=== PATIENT | female | born 1945 | race Caucasian/White ===

== ENCOUNTER 2019-06-26 17:00 | Inpatient (IN) | payer OTHER ==
[~2019-06-26] VITALS: Ht 154.9 cm; Wt 90.7 kg
[~2019-06-26 17:00] MED LIST: AMLO5TAB4 PO; FURO-150 PO; HYDR-4272 PO; LIP40 PO; METO25TA6 PO; POTA10TA15 PO; PRED5TAB PO; PREG75CA PO; PRO40 PO; SPIRIVA INH
[2019-06-26 17:12] VITALS: BP_SYST 156
[2019-06-26] MEDS ORDERED: APIX5TAB4 PO (17:19)
[2019-06-26] MEDS ORDERED: IOHEXOL 350 mgI/mL, 150 ML INFUS..BTL IV ONE (17:46)
[2019-06-26 17:47] LABS: BASOPHILS % (AUTO) 0.3 % (0.0-2.0); EOSINOPHILS # (AUTO) 0.1 K/uL (0.0-0.4); EOSINOPHILS % (AUTO) 0.6 % (0.0-4.0); HEMATOCRIT 40.3 % (36-48); HEMOGLOBIN 13.2 g/dL (12.0-16.0); LYMPHOCYTES # (AUTO) 1.7 K/uL (1.0-5.5); LYMPHOCYTES % (AUTO) 16.2 % (20.5-51.5); MEAN CORPUSCULAR HEMOGLOBIN 32 pg (27-31); MEAN CORPUSCULAR HGB CONC 33 % (32-36); MEAN CORPUSCULAR VOLUME 98 fL (79.0-98.0); MONOCYTES # (AUTO) 1.2 K/uL (0.0-1.0); MONOCYTES % (AUTO) 11.4 % (1.7-9.3); NEUTROPHILS # (AUTO) 7.6 K/uL (1.8-7.7); NEUTROPHILS % (AUTO) 71.5 % (40.0-70.0); PLATELET COUNT (AUTO) 268 K/uL (130-430); RED BLOOD CELL COUNT(AUTO) 4.11 MIL/uL (4.2-6.2); RED CELL DISTRIBUTION WIDTH 16.9 % (9.0-15.0); WHITE BLOOD COUNT (AUTO) 10.6 K/uL (4.8-10.8)
[2019-06-26 17:52] LABS: ANION GAP 11 (5-15); CALCIUM 9.8 mg/dL (8.4-11.0); CHLORIDE 101 mmol/L (98-107); CREATININE 0.88 mg/dL (0.55-1.30); GLUCOSE 135 mg/dL (70-99); POTASSIUM 3.4 mmol/L (3.5-5.1); SODIUM SERUM 142 mmol/L (136-145); UREA NITROGEN, BLOOD 16 mg/dL (8-21)
[2019-06-26 17:57] LABS: ALANINE AMINOTRANSFERASE 35 U/L (12-78); ASPARTATE AMINOTRANSFERASE 15 U/L (10-37); TOTAL BILIRUBIN 0.7 mg/dL (0.0-1.0)
[2019-06-26] MEDS ORDERED: IPRATROPIUM/ALBUTEROL SULFATE 3 ML AMPUL.NEB (DUONEB) INH ONE (19:30)
[2019-06-26] MEDS ORDERED: methylPREDNISolone SOD SUCC/PF 62.5 MG/ML VIAL IVP ONE (19:45)
[2019-06-26 20:00] VITALS: BP_SYST 159
[2019-06-26 20:13] VITALS: BP_SYST 159
[2019-06-26] MEDS ORDERED: ACETAMINOPHEN 325 MG TABLET PO PRN (21:15)
[2019-06-26] MEDS ORDERED: ALBUTEROL SULFATE 0.083% 2.5 MG/3 ML VIAL.NEB INH PRN (21:15)
[2019-06-26] MEDS ORDERED: LEVOFLOXACIN 500 MG/D5W 100 ML IV SCH (22:00)
[2019-06-26] MEDS: HYDROcodone/ACETAMIN 10-325 MG TAB PO PRN (22:12)
[2019-06-26] MEDS: APIXABAN 2.5 MG TABLET PO SCH (22:14)
[2019-06-27 00:15] VITALS: BP_SYST 168
[2019-06-27] MEDS: HYDROcodone/ACETAMIN 10-325 MG TAB PO PRN ×3 (04:08→20:24)
[2019-06-27] MEDS ORDERED: hydrALAZINE HCL 25 MG TABLET PO ONE (05:00)
[2019-06-27] MEDS ORDERED: MORPHINE 2 MG/ML INJ. SYRINGE IVP ONE (05:00)
[2019-06-27] MEDS: PANTOPRAZOLE SODIUM 40 MG TAB PO SCH (06:13)
[2019-06-27 07:01] LABS: ALANINE AMINOTRANSFERASE 31 U/L (12-78); ALBUMIN 3.5 g/dL (3.4-4.8); ANION GAP 8 (5-15); ASPARTATE AMINOTRANSFERASE 26 U/L (10-37); CALCIUM 9.5 mg/dL (8.4-11.0); CHLORIDE 102 mmol/L (98-107); CREATININE 0.85 mg/dL (0.55-1.30); GLUCOSE 182 mg/dL (70-99); POTASSIUM 4.8 mmol/L (3.5-5.1); SODIUM SERUM 138 mmol/L (136-145); TOTAL BILIRUBIN 0.7 mg/dL (0.0-1.0); UREA NITROGEN, BLOOD 15 mg/dL (8-21)
[2019-06-27 07:04] LABS: BASOPHILS % (AUTO) 0.4 % (0.0-2.0); HEMATOCRIT 37.2 % (36-48); LYMPHOCYTES # (AUTO) 0.4 K/uL (1.0-5.5); LYMPHOCYTES % (AUTO) 4.4 % (20.5-51.5); MEAN CORPUSCULAR HEMOGLOBIN 32 pg (27-31); MEAN CORPUSCULAR HGB CONC 32 % (32-36); MEAN CORPUSCULAR VOLUME 99 fL (79.0-98.0); MONOCYTES # (AUTO) 0.2 K/uL (0.0-1.0); MONOCYTES % (AUTO) 2.4 % (1.7-9.3); NEUTROPHILS # (AUTO) 7.6 K/uL (1.8-7.7); NEUTROPHILS % (AUTO) 92.8 % (40.0-70.0); PLATELET COUNT (AUTO) 207 K/uL (130-430); RED BLOOD CELL COUNT(AUTO) 3.77 MIL/uL (4.2-6.2); RED CELL DISTRIBUTION WIDTH 16.7 % (9.0-15.0); WHITE BLOOD COUNT (AUTO) 8.2 K/uL (4.8-10.8)
[2019-06-27 08:00] VITALS: BP_SYST 159
[2019-06-27] MEDS ORDERED: FUROSEMIDE 20 MG TABLET PO SCH (09:00)
[2019-06-27] MEDS ORDERED: PREDNISONE 5 MG TABLET PO SCH (09:00)
[2019-06-27] MEDS ORDERED: TIOTROPIUM BROMIDE 18 mcg/INHALATION (CAPSULE) INH SCH (09:00)
[2019-06-27] MEDS: ATORVASTATIN 20 MG TABLET PO SCH (09:51)
[2019-06-27] MEDS: POTASSIUM CHLORIDE 10 MEQ TAB.PRT.SR PO SCH (09:53)
[2019-06-27] MEDS: PREDNISONE 20 MG TABLET PO SCH (09:53)
[2019-06-27] MEDS: PREGABALIN 75 MG CAPSULE (LYRICA) PO SCH (09:53)
[2019-06-27] MEDS: amLODIPine BESYLATE 5 MG TABLET PO SCH (09:53)
[2019-06-27] MEDS: METOPROLOL TARTRATE 25 MG TABLET PO SCH ×2 (09:54→20:24)
[2019-06-27] MEDS: APIXABAN 2.5 MG TABLET PO SCH ×2 (09:57→20:25)
[2019-06-27 12:14] VITALS: BP_SYST 159
[2019-06-27] MEDS ORDERED: FUROSEMIDE 20 MG/2 ML VIAL IVP ONE (12:15)
[2019-06-27 16:52] VITALS: BP_SYST 146
[2019-06-27 20:00] VITALS: BP_SYST 140
[2019-06-27] MEDS: IPRATROPIUM BROM 0.5 MG/2.5 ML VIAL.NEB (ATROVENT) INH SCH (21:00)
[2019-06-27] MEDS: LEVOFLOXACIN 250 MG/D5W 50 ML IV SCH (21:52)
[2019-06-28 00:36] VITALS: BP_SYST 137
[2019-06-28 06:13] LABS: BASOPHILS % (AUTO) 0.1 % (0.0-2.0); HEMATOCRIT 34.9 % (36-48); HEMOGLOBIN 11.4 g/dL (12.0-16.0); LYMPHOCYTES # (AUTO) 0.8 K/uL (1.0-5.5); LYMPHOCYTES % (AUTO) 7.7 % (20.5-51.5); MEAN CORPUSCULAR HEMOGLOBIN 32 pg (27-31); MEAN CORPUSCULAR HGB CONC 33 % (32-36); MEAN CORPUSCULAR VOLUME 98 fL (79.0-98.0); MONOCYTES % (AUTO) 10.5 % (1.7-9.3); NEUTROPHILS % (AUTO) 81.7 % (40.0-70.0); PLATELET COUNT (AUTO) 214 K/uL (130-430); RED BLOOD CELL COUNT(AUTO) 3.55 MIL/uL (4.2-6.2); RED CELL DISTRIBUTION WIDTH 16.7 % (9.0-15.0); WHITE BLOOD COUNT (AUTO) 9.8 K/uL (4.8-10.8)
[2019-06-28] MEDS: PANTOPRAZOLE SODIUM 40 MG TAB PO SCH (06:24)
[2019-06-28] MEDS: HYDROcodone/ACETAMIN 10-325 MG TAB PO PRN ×3 (06:24→18:46)
[2019-06-28] MEDS: IPRATROPIUM BROM 0.5 MG/2.5 ML VIAL.NEB (ATROVENT) INH SCH ×4 (07:16→19:37)
[2019-06-28 07:34] LABS: ALANINE AMINOTRANSFERASE 34 U/L (12-78); ALBUMIN 3.2 g/dL (3.4-4.8); ANION GAP 3 (5-15); ASPARTATE AMINOTRANSFERASE 21 U/L (10-37); CALCIUM 8.9 mg/dL (8.4-11.0); CHLORIDE 98 mmol/L (98-107); CREATININE 0.87 mg/dL (0.55-1.30); GLUCOSE 123 mg/dL (70-99); POTASSIUM 3.9 mmol/L (3.5-5.1); SODIUM SERUM 134 mmol/L (136-145); TOTAL BILIRUBIN 0.7 mg/dL (0.0-1.0); UREA NITROGEN, BLOOD 21 mg/dL (8-21)
[2019-06-28 08:00] VITALS: BP_SYST 147
[2019-06-28] MEDS: PREDNISONE 20 MG TABLET PO SCH (08:39)
[2019-06-28] MEDS: amLODIPine BESYLATE 5 MG TABLET PO SCH (08:39)
[2019-06-28] MEDS: PREGABALIN 75 MG CAPSULE (LYRICA) PO SCH (08:40)
[2019-06-28] MEDS: METOPROLOL TARTRATE 25 MG TABLET PO SCH ×2 (08:40→21:28)
[2019-06-28] MEDS: POTASSIUM CHLORIDE 10 MEQ TAB.PRT.SR PO SCH (08:40)
[2019-06-28] MEDS: ATORVASTATIN 20 MG TABLET PO SCH (08:41)
[2019-06-28] MEDS: APIXABAN 2.5 MG TABLET PO SCH ×2 (08:41→21:30)
[2019-06-28] MEDS: FUROSEMIDE 20 MG/2 ML VIAL IVP SCH (08:42)
[2019-06-28 12:12] VITALS: BP_SYST 151
[2019-06-28] MEDS ORDERED: methylPREDNISolone SOD SUCC/PF 62.5 MG/ML VIAL IVP ONE (14:30)
[2019-06-28 16:30] VITALS: BP_SYST 141
[2019-06-28 20:00] VITALS: BP_SYST 140
[2019-06-28] MEDS: LEVOFLOXACIN 250 MG/D5W 50 ML IV SCH (21:28)
[2019-06-28] MEDS: HYDROcodone/ACETAMIN 5-325 MG TAB (NORCO/ VICODIN) PO PRN (21:29)
[2019-06-29 00:51] VITALS: BP_SYST 158
[2019-06-29] MEDS: PANTOPRAZOLE SODIUM 40 MG TAB PO SCH (06:00)
[2019-06-29] MEDS: HYDROcodone/ACETAMIN 10-325 MG TAB PO PRN ×4 (06:01→20:13)
[2019-06-29] MEDS: IPRATROPIUM BROM 0.5 MG/2.5 ML VIAL.NEB (ATROVENT) INH SCH ×4 (07:15→21:25)
[2019-06-29 07:23] LABS: ANION GAP 5 (5-15); CALCIUM 9.5 mg/dL (8.4-11.0); CHLORIDE 103 mmol/L (98-107); CREATININE 0.75 mg/dL (0.55-1.30); GLUCOSE 161 mg/dL (70-99); POTASSIUM 4.3 mmol/L (3.5-5.1); SODIUM SERUM 141 mmol/L (136-145); UREA NITROGEN, BLOOD 21 mg/dL (8-21)
[2019-06-29 08:06] VITALS: BP_SYST 153
[2019-06-29] MEDS: PREDNISONE 20 MG TABLET PO SCH (08:30)
[2019-06-29] MEDS: PREGABALIN 75 MG CAPSULE (LYRICA) PO SCH (08:30)
[2019-06-29] MEDS: ATORVASTATIN 20 MG TABLET PO SCH (08:30)
[2019-06-29] MEDS: POTASSIUM CHLORIDE 10 MEQ TAB.PRT.SR PO SCH (08:30)
[2019-06-29] MEDS: APIXABAN 2.5 MG TABLET PO SCH ×2 (08:31→20:12)
[2019-06-29] MEDS: METOPROLOL TARTRATE 25 MG TABLET PO SCH ×2 (08:32→20:11)
[2019-06-29] MEDS: amLODIPine BESYLATE 5 MG TABLET PO SCH (08:32)
[2019-06-29] MEDS: FUROSEMIDE 20 MG/2 ML VIAL IVP SCH (08:33)
[2019-06-29] MEDS: HYDROcodone/ACETAMIN 5-325 MG TAB (NORCO/ VICODIN) PO PRN (08:33)
[2019-06-29] MEDS ORDERED: methylPREDNISolone SOD SUCC 40 MG/ML VIAL IVP ONE (09:30)
[2019-06-29 11:37] VITALS: BP_SYST 135
[2019-06-29 15:27] VITALS: BP_SYST 132
[2019-06-29 20:00] VITALS: BP_SYST 146
[2019-06-29] MEDS: LEVOFLOXACIN 250 MG/D5W 50 ML IV SCH (22:37)
[2019-06-30 02:40] VITALS: BP_SYST 144
[2019-06-30] MEDS: HYDROcodone/ACETAMIN 10-325 MG TAB PO PRN ×3 (05:40→20:18)
[2019-06-30] MEDS: PANTOPRAZOLE SODIUM 40 MG TAB PO SCH (06:02)
[2019-06-30] MEDS: IPRATROPIUM BROM 0.5 MG/2.5 ML VIAL.NEB (ATROVENT) INH SCH ×4 (07:11→19:35)
[2019-06-30 07:16] LABS: BASOPHILS % (AUTO) 0.3 % (0.0-2.0); HEMATOCRIT 37.3 % (36-48); HEMOGLOBIN 12.2 g/dL (12.0-16.0); LYMPHOCYTES # (AUTO) 0.9 K/uL (1.0-5.5); LYMPHOCYTES % (AUTO) 8.1 % (20.5-51.5); MEAN CORPUSCULAR HEMOGLOBIN 32 pg (27-31); MEAN CORPUSCULAR HGB CONC 33 % (32-36); MEAN CORPUSCULAR VOLUME 98 fL (79.0-98.0); MONOCYTES # (AUTO) 1.3 K/uL (0.0-1.0); MONOCYTES % (AUTO) 11.7 % (1.7-9.3); NEUTROPHILS # (AUTO) 9.1 K/uL (1.8-7.7); NEUTROPHILS % (AUTO) 79.9 % (40.0-70.0); PLATELET COUNT (AUTO) 255 K/uL (130-430); RED BLOOD CELL COUNT(AUTO) 3.82 MIL/uL (4.2-6.2); RED CELL DISTRIBUTION WIDTH 16.1 % (9.0-15.0)
[2019-06-30 07:36] LABS: ALANINE AMINOTRANSFERASE 38 U/L (12-78); ALBUMIN 3.5 g/dL (3.4-4.8); ANION GAP 5 (5-15); ASPARTATE AMINOTRANSFERASE 17 U/L (10-37); CALCIUM 9.7 mg/dL (8.4-11.0); CHLORIDE 102 mmol/L (98-107); CREATININE 0.82 mg/dL (0.55-1.30); GLUCOSE 119 mg/dL (70-99); POTASSIUM 4.4 mmol/L (3.5-5.1); SODIUM SERUM 141 mmol/L (136-145); TOTAL BILIRUBIN 0.5 mg/dL (0.0-1.0); UREA NITROGEN, BLOOD 23 mg/dL (8-21)
[2019-06-30] MEDS: methylPREDNISolone SOD SUCC 40 MG/ML VIAL IVP SCH (08:14)
[2019-06-30] MEDS: HYDROcodone/ACETAMIN 5-325 MG TAB (NORCO/ VICODIN) PO PRN (08:14)
[2019-06-30] MEDS: FUROSEMIDE 20 MG/2 ML VIAL IVP SCH (08:14)
[2019-06-30] MEDS: POTASSIUM CHLORIDE 10 MEQ TAB.PRT.SR PO SCH (08:15)
[2019-06-30] MEDS: ATORVASTATIN 20 MG TABLET PO SCH (08:15)
[2019-06-30] MEDS: METOPROLOL TARTRATE 25 MG TABLET PO SCH ×2 (08:15→20:19)
[2019-06-30] MEDS: PREDNISONE 20 MG TABLET PO SCH (08:15)
[2019-06-30] MEDS: amLODIPine BESYLATE 5 MG TABLET PO SCH (08:16)
[2019-06-30] MEDS: PREGABALIN 75 MG CAPSULE (LYRICA) PO SCH (08:16)
[2019-06-30] MEDS: APIXABAN 2.5 MG TABLET PO SCH ×2 (08:17→20:21)
[2019-06-30 08:30] VITALS: BP_SYST 140
[2019-06-30 08:48] LABS: WHITE BLOOD COUNT (AUTO) 11.4 K/uL (4.8-10.8)
[2019-06-30] MEDS: ONDANSETRON HCL 4 MG/2 ML VIAL IVP PRN (09:10)
[2019-06-30 12:00] VITALS: BP_SYST 142
[2019-06-30 16:30] VITALS: BP_SYST 146
[2019-06-30] MEDS: MONTELUKAST 10 MG TABLET PO SCH (17:33)
[2019-06-30 20:00] VITALS: BP_SYST 142
[2019-06-30] MEDS: LEVOFLOXACIN 250 MG/D5W 50 ML IV SCH (21:39)
[2019-07-01 01:31] VITALS: BP_SYST 151
[2019-07-01] MEDS: HYDROcodone/ACETAMIN 5-325 MG TAB (NORCO/ VICODIN) PO PRN (02:57)
[2019-07-01] MEDS: PANTOPRAZOLE SODIUM 40 MG TAB PO SCH (06:08)
[2019-07-01] MEDS: HYDROcodone/ACETAMIN 10-325 MG TAB PO PRN ×4 (06:13→20:36)
[2019-07-01] MEDS: IPRATROPIUM BROM 0.5 MG/2.5 ML VIAL.NEB (ATROVENT) INH SCH ×3 (07:22→19:10)
[2019-07-01 08:07] VITALS: BP_SYST 133
[2019-07-01] MEDS: ONDANSETRON HCL 4 MG/2 ML VIAL IVP PRN (08:38)
[2019-07-01] MEDS: ATORVASTATIN 20 MG TABLET PO SCH (08:42)
[2019-07-01] MEDS: POTASSIUM CHLORIDE 10 MEQ TAB.PRT.SR PO SCH (08:43)
[2019-07-01] MEDS: PREDNISONE 20 MG TABLET PO SCH (08:43)
[2019-07-01] MEDS: METOPROLOL TARTRATE 25 MG TABLET PO SCH ×2 (08:43→20:33)
[2019-07-01] MEDS: amLODIPine BESYLATE 5 MG TABLET PO SCH (08:43)
[2019-07-01] MEDS: PREGABALIN 75 MG CAPSULE (LYRICA) PO SCH (08:43)
[2019-07-01] MEDS: methylPREDNISolone SOD SUCC 40 MG/ML VIAL IVP SCH (08:44)
[2019-07-01] MEDS: FUROSEMIDE 20 MG/2 ML VIAL IVP SCH (08:44)
[2019-07-01] MEDS: APIXABAN 2.5 MG TABLET PO SCH ×2 (08:45→20:35)
[2019-07-01 12:37] VITALS: BP_SYST 116
[2019-07-01] MEDS ORDERED: FUROSEMIDE 20 MG/2 ML VIAL IVP ONE (15:00)
[2019-07-01 16:16] VITALS: BP_SYST 130
[2019-07-01] MEDS: MONTELUKAST 10 MG TABLET PO SCH (17:30)
[2019-07-01 20:00] VITALS: BP_SYST 144
[2019-07-01] MEDS: LEVOFLOXACIN 250 MG/D5W 50 ML IV SCH (21:07)
[2019-07-02 01:34] VITALS: BP_SYST 143
[2019-07-02] MEDS: PANTOPRAZOLE SODIUM 40 MG TAB PO SCH (06:03)
[2019-07-02] MEDS: HYDROcodone/ACETAMIN 10-325 MG TAB PO PRN ×5 (06:04→21:02)
[2019-07-02 07:49] LABS: CALCIUM 9.5 mg/dL (8.4-11.0); CHLORIDE 103 mmol/L (98-107); CREATININE 0.83 mg/dL (0.55-1.30); GLUCOSE 109 mg/dL (70-99); POTASSIUM 4.4 mmol/L (3.5-5.1); SODIUM SERUM 141 mmol/L (136-145); UREA NITROGEN, BLOOD 25 mg/dL (8-21)
[2019-07-02 08:00] VITALS: BP_SYST 162
[2019-07-02 08:08] LABS: ANION GAP 0 (5-15)
[2019-07-02] MEDS: FUROSEMIDE 20 MG/2 ML VIAL IVP SCH (08:39)
[2019-07-02] MEDS: POTASSIUM CHLORIDE 10 MEQ TAB.PRT.SR PO SCH (08:40)
[2019-07-02] MEDS: amLODIPine BESYLATE 5 MG TABLET PO SCH (08:40)
[2019-07-02] MEDS: PREGABALIN 75 MG CAPSULE (LYRICA) PO SCH (08:41)
[2019-07-02] MEDS: METOPROLOL TARTRATE 25 MG TABLET PO SCH ×2 (08:41→20:59)
[2019-07-02] MEDS: ATORVASTATIN 20 MG TABLET PO SCH (08:42)
[2019-07-02] MEDS: PREDNISONE 20 MG TABLET PO SCH (08:42)
[2019-07-02] MEDS: APIXABAN 2.5 MG TABLET PO SCH ×2 (08:42→20:51)
[2019-07-02 08:50] VITALS: BP_SYST 162
[2019-07-02] MEDS: IPRATROPIUM BROM 0.5 MG/2.5 ML VIAL.NEB (ATROVENT) INH SCH ×4 (08:53→19:39)
[2019-07-02] MEDS: ONDANSETRON HCL 4 MG/2 ML VIAL IVP PRN (09:56)
[2019-07-02 12:32] VITALS: BP_SYST 135
[2019-07-02 16:50] VITALS: BP_SYST 130
[2019-07-02] MEDS: MONTELUKAST 10 MG TABLET PO SCH (17:59)
[2019-07-02 20:00] VITALS: BP_SYST 123
[2019-07-02] MEDS: LEVOFLOXACIN 250 MG/D5W 50 ML IV SCH (22:04)
[2019-07-03 02:24] VITALS: BP_SYST 128
[2019-07-03] MEDS: PANTOPRAZOLE SODIUM 40 MG TAB PO SCH (06:36)
[2019-07-03] MEDS: HYDROcodone/ACETAMIN 10-325 MG TAB PO PRN (06:40)
[2019-07-03] MEDS: IPRATROPIUM BROM 0.5 MG/2.5 ML VIAL.NEB (ATROVENT) INH SCH ×2 (07:30→11:00)
[2019-07-03 07:40] LABS: ANION GAP 4 (5-15); CALCIUM 9.2 mg/dL (8.4-11.0); CHLORIDE 103 mmol/L (98-107); CREATININE 0.89 mg/dL (0.55-1.30); GLUCOSE 109 mg/dL (70-99); POTASSIUM 3.4 mmol/L (3.5-5.1); SODIUM SERUM 140 mmol/L (136-145); UREA NITROGEN, BLOOD 32 mg/dL (8-21)
[2019-07-03 08:00] VITALS: BP_SYST 116
[2019-07-03] MEDS: ONDANSETRON HCL 4 MG/2 ML VIAL IVP PRN (08:11)
[2019-07-03] MEDS: ATORVASTATIN 20 MG TABLET PO SCH (08:14)
[2019-07-03] MEDS: POTASSIUM CHLORIDE 10 MEQ TAB.PRT.SR PO SCH (08:16)
[2019-07-03] MEDS: PREDNISONE 20 MG TABLET PO SCH (08:17)
[2019-07-03] MEDS: PREGABALIN 75 MG CAPSULE (LYRICA) PO SCH (08:18)
[2019-07-03] MEDS: amLODIPine BESYLATE 5 MG TABLET PO SCH (08:19)
[2019-07-03] MEDS: METOPROLOL TARTRATE 25 MG TABLET PO SCH (08:19)
[2019-07-03] MEDS: APIXABAN 2.5 MG TABLET PO SCH (08:20)
[2019-07-03] MEDS: FUROSEMIDE 20 MG/2 ML VIAL IVP SCH (08:21)
[2019-07-03] MEDS: HYDROcodone/ACETAMIN 5-325 MG TAB (NORCO/ VICODIN) PO PRN (09:29)
[2019-07-03] MEDS ORDERED: POTASSIUM CHLORIDE 20 MEQ TAB.PRT.SR PO ONE (10:30)
[2019-07-03 13:14] VITALS: BP_SYST 145
[2019-07-03] MEDS ORDERED: LEVO750T45 PO (13:39)
[2019-07-03] MEDS ORDERED: PRED20TA PO ×3 (13:40→13:42)
== END 2019-07-03 14:13 | disposition home or self-care (01) | DRG 196 ==
LOC: SED 17:00 → STU 19:35 → SMU 07-02 14:46
PROVIDERS: ADMIT Internal Medicine Hospice and Palliative Medicine; ATTEND Internal Medicine Hospice and Palliative Medicine
DX: J84.10 Pulmonary fibrosis, unspecified (principal); J96.21 Acute and chronic respiratory failure with hypoxia; I82.403 Acute embolism and thrombosis of unspecified deep veins of lower extremity, bilateral; J44.1 Chronic obstructive pulmonary disease with (acute) exacerbation; J61 Pneumoconiosis due to asbestos and other mineral fibers; E87.6 Hypokalemia; E78.5 Hyperlipidemia, unspecified; I11.0 Hypertensive heart disease with heart failure; I50.9 Heart failure, unspecified; M35.3 Polymyalgia rheumatica; Z79.52 Long term (current) use of systemic steroids; Z83.3 Family history of diabetes mellitus; Z85.41 Personal history of malignant neoplasm of cervix uteri; Z86.718 Personal history of other venous thrombosis and embolism; Z87.891 Personal history of nicotine dependence; Z90.710 Acquired absence of both cervix and uterus; Z88.1 Allergy status to other antibiotic agents; Z79.899 Other long term (current) drug therapy
CPT/HCPCS: 36415; 36600; 71045; 71275; 80048; 80053; 82550-TC; 82803-TC; 83880; 84484; 85025; 93005; 94640; 94760; 99285; G0378; J1030; J1120; J1940; J1956; J2270; J2405; J2930; J7050; J7512; J7620; Q9967